=== PATIENT | male | born 1980 | race Caucasian/White ===

== ENCOUNTER 2025-09-04 13:39 | Emergency (ER) | payer MEDICAID, OTHER ==
[~2025-09-04] VITALS: Ht 175.3 cm; Wt 73.3 kg
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
--- NOTE | 2025-09-04 14:44 | DVH ---
XY L ANKLE 3 VIEW, INDICATION: fall TECHNICAL DATA:Frontal , oblique and lateral views were obtained of the left ankle. COMPARISON: None FINDINGS: Subacute distal fibula fracture is suspected. Joint spaces are maintained. Alignment is anatomic. Soft tissues are swollen. IMPRESSION: Subacute distal fibula fracture is suspected.
[2025-09-04] MEDS: HYDROcodone-ACET 10/325MG TAB PO ONE (15:34)
[2025-09-04 16:00] VITALS: BP 148/92; PULSE 70; RESP 16; TEMP 98.3; O2SAT 99
[2025-09-04] MEDS ORDERED: IBU600T PO (16:24)
[2025-09-04] MEDS: KETOROLAC TROMETH 60MG/2ML VIAL IM ONE (16:37)
== END 2025-09-04 16:59 | disposition home or self-care (01) ==
LOC: ER 13:39
DX: S82.892A Other fracture of left lower leg, initial encounter for closed fracture (principal); Z88.5 Allergy status to narcotic agent; X50.1XXA Overexertion from prolonged static or awkward postures, initial encounter; Y93.89 Activity, other specified; Y92.89 Other specified places as the place of occurrence of the external cause; Y99.8 Other external cause status
CPT/HCPCS: 29515; 73610; 96372; 99283; J1885